=== PATIENT | male | born 1970 | race Caucasian/White ===

== ENCOUNTER 2017-01-30 08:28 | Day surgery (SDC) | payer OTHER ==
[~2017-01-30] VITALS: Ht 165.1 cm; Wt 84.4 kg
[~2017-01-30 08:28] MED LIST: ALBUTEROL SULF8.5 GM INH; ALEVE220 MG PO; ASPIRIN325 MG PO; DHEA25 MG PO; GINSENG PO; IBUPROFEN400 MG PO; MEN'S ONE DAIL1 EACH PO; OSTERA TABLET1 EACH PO; TYLENOL325 MG PO; ZYRTEC10 MG PO
[2017-01-30] MEDS ORDERED: VITAMIN D-32000 UNI1 PO (09:10)
[2017-01-30] MEDS ORDERED: MULTIVITAMINS1 EAC7 PO (09:10)
[2017-01-30] MEDS ORDERED: VITAMIN C500 M1 PO (09:10)
--- NOTE | 2017-01-30 11:24 | NUR ---
01/30/17 Sunny4 Keyanna Tang MD AT BEDSIDE
--- NOTE | 2017-02-02 07:49 | OR ---
[facility] [address] [facility] [address] [place], [place] [address] Signed DATE OF OPERATION: 01/30/2017 SURGEON: Ismael Ernst MD PREOPERATIVE DIAGNOSES: 1. Rectal bleeding with grade 4 hemorrhoids. 2. Family history of colon cancer and colitis. 3. Incisional hernia at umbilicus. POSTOPERATIVE DIAGNOSIS: Grade 4 internal and external hemorrhoidal changes. No evidence of polyps or cancer or colitis. PROCEDURE: Total colonoscopy to cecum. ANESTHESIA: Intravenous sedation, fentanyl 100 mcg, Versed 5 mg. INDICATION: This 46-year-old white man is a patient of Dr. Dayron Maciel and well known to me from the past. He has had rectal bleeding and was seen and found to have grade 4 hemorrhoidal changes. He does have family history of colon cancer and colitis in his parents. His last colonoscopy was 6 years ago. He additionally is noted to have an incisional hernia at the umbilicus following laparoscopic appendectomy performed by Dr. Michel Singh. He is admitted at this time to undergo colonoscopy to rule out troublesome findings accounting for the bleeding that would be separate from the hemorrhoidal problem. If this study is normal, consideration will be made for incisional hernia repair with implantation of mesh. Following that, hemorrhoidectomy would be considered as well. The patient understands the risks of colonoscopy including, but not limited to bleeding, infection, and perforation and wished to proceed. FINDINGS: The prep was quite good. Complete colonoscopy was undertaken to the cecum. There were no signs of polyps, cancer, or colitis. Retroflexed view confirmed internal and external hemorrhoidal changes. DESCRIPTION OF PROCEDURE: The patient was brought to the endoscopy suite and placed in lateral decubitus position, Electronically Signed By: ISMAEL ERNST MD 02/02/17 0749 PATIENT NAME: GINI PEOPLES OPERATIVE REPORT DATE OF : 68 PHYSICIAN: ISMAEL ERNST MD REPORT #: [id number] REPORT IS CONFIDENTIAL AND NOT TO BE RELEASED WITHOUT AUTHORIZATION [facility] [address] [place] [id number] Signed given intravenous sedation to the point of slurred speech and nystagmus. Digital rectal examination was normal. An Olympus video colonoscope was passed in the rectum and manipulated throughout the colon. Throughout the procedure, the patient had some oxygen desaturations completely consistent with underlying sleep apnea syndrome. He is well known to have that, though he rarely uses his CPAP device. The scope was ultimately passed to the cecum without problem showing no sign of abnormality. The scope was withdrawn from that point. Examination throughout upon withdrawal of scope showed no sign of abnormality until retroflexed view of the rectum confirmed internal component of grade 4 prolapsing hemorrhoidal disease. The scope was removed and the patient was taken to recovery room in good condition. CONCLUDING DIAGNOSIS: No evidence of worrisome findings proximal to the rectum to account for bleeding. PLAN: We will set up for incisional hernia repair related to be followed by hemorrhoidectomy. He will call the office to schedule these things. MD HUANG Deng/CRATER /[id number] cc: Dayron Maciel MD Electronically Signed By: ISMAEL ERNST MD 02/02/17 0749 PATIENT NAME: GINI PEOPLES OPERATIVE REPORT DATE OF : 68 PHYSICIAN: ISMAEL ERNST MD REPORT #: [id number] REPORT IS CONFIDENTIAL AND NOT TO BE RELEASED WITHOUT AUTHORIZATION
== END 2017-01-30 12:08 | disposition home or self-care (01) ==
LOC: OPS 08:28 → DS 11:00 → OPS 12:08
PROVIDERS: Surgery
PROC: 0DJD8ZZ Inspection of Lower Intestinal Tract, Via Natural or Artificial Opening Endoscopic (ICD-10-PCS; principal; 2017-01-30 11:00)
DX: K64.3 Fourth degree hemorrhoids (principal); K42.0 Umbilical hernia with obstruction, without gangrene; G47.30 Sleep apnea, unspecified; J45.909 Unspecified asthma, uncomplicated; Z80.0 Family history of malignant neoplasm of digestive organs; Z90.89 Acquired absence of other organs; Z90.49 Acquired absence of other specified parts of digestive tract; Z96.651 Presence of right artificial knee joint; Z98.890 Other specified postprocedural states; Z99.81 Dependence on supplemental oxygen
CPT/HCPCS: 99152; 99153; J2250; J3010; J7120

== ENCOUNTER 2017-02-01 06:50 | Day surgery (SDC) | payer OTHER ==
[~2017-02-01] VITALS: Ht 165.1 cm; Wt 84.4 kg
[~2017-02-01 06:50] MED LIST changes: +MULTIVITAMINS1 EAC7 PO; +VITAMIN C500 M1 PO; +VITAMIN D-32000 UNI1 PO
[2017-02-01] MEDS ORDERED: IBUPROFEN600 MG PO (10:31)
[2017-02-01] MEDS ORDERED: OXYCODON-ACETA1 EAC2 PO (10:32)
[2017-02-01] MEDS ORDERED: MAPAP325 MG PO (10:32)
--- NOTE | 2017-02-02 07:49 | OR ---
[facility] [address] [place], [place] [address] Signed DATE OF OPERATION: SURGEON: Ismael Ernst MD PREOPERATIVE DIAGNOSIS: Recurrent incisional hernia at the umbilicus. POSTOPERATIVE DIAGNOSIS: Recurrent incisional hernia at the umbilicus. Three deficits total. PROCEDURE: Repair of incisional hernia at umbilicus with implantation of Prolene mesh (underlay technique). ANESTHESIA: General LMA, Ismael Sepulveda CRNA Local 20 mL 0.25% Marcaine with epinephrine. INDICATION: This 46-year-old white man is a patient of Dr. Maciel and underwent laparoscopic cholecystectomy by id in 2005. He underwent laparoscopic appendectomy by Dr. Singh in 2011 for acute appendicitis, and was noted concurrently to have apparent incisional hernia at the umbilicus. Repair was undertaken at that time with Prolene suture, but not any mesh given the inflammatory and infected nature of the appendix. He has since developed a bulge to the right of the umbilicus, which is progressively increased in size. Additionally, he notes another small bulge to the left of the umbilicus. The patient has undergone colonoscopy, and he additionally has hemorrhoids and a family history of colon cancer and colitis. His colonoscopy recently performed showed no evidence of malignancy. Hemorrhoidal excision is anticipated in the future. He is here at this time to undergo repair of the incisional hernia at the umbilicus understanding the risks of bleeding, infection, recurrence and so on. FINDINGS: There were actually three defects at the umbilicus. Prolene suture repair was noted in the area as well. The defects were made to be in continuity and the properitoneal space free allowing for implantation of Prolene mesh in an underlay technique widely overlapping the defect by 4 cm at every area. The midline fascia was transversely re-approximated with Prolene suture with Prolene mesh pledgets as well. Optimal repair Electronically Signed By: ISMAEL ERNST MD 02/02/17 0749 PATIENT NAME: GINI PEOPLES OPERATIVE REPORT DATE OF : 68 PHYSICIAN: ISMAEL ERNST MD REPORT #: [id number] REPORT IS CONFIDENTIAL AND NOT TO BE RELEASED WITHOUT AUTHORIZATION [facility] [address] [place], [place] [address] Signed has been accomplished. DESCRIPTION OF PROCEDURE: The patient was brought to the operating room, given a general LMA-type anesthetic, preoperative antibiotic Ancef was given. Sequential compression device stockings were used and heparin subcutaneously administered. The abdomen was clipped and prepared with chlorhexidine solution and draped sterilely. A transverse incision was noted from prior operation. A midline incision was made transecting the transverse incision circumventing the umbilicus itself. Dissection was carried through the subcutaneous tissue and fat with a blunt and electrocautery dissection ultimately freeing three separate hernia sacs from the overlying skin and soft tissue. The fascial defects were between 2 and 3 cm each. They were bridged by fascia as well. Prolene suture, which had been implanted in the past for suture repair was explanted. Subcutaneous tissue over the fascia was freed to allow for suture placement. The properitoneal space was bluntly free reducing the herniated omentum. The hernia sac was made to be closed with 2-0 Vicryl. The fascial edge that had been freed in the properitoneal space circumferentially for at least 4 cm was accomplished with the end of a DeBakey forceps and blunt dissection. A segment of Prolene mesh was cut to an elliptical configuration and secured transversely beneath the fascial defect. Interrupted 0 Prolene sutures with Prolene mesh pledgets were used to secure the mesh. The fascial edges were reapproximated with interrupted 0 Prolene with Prolene mesh pledgets as well in a vertical mattress configuration, closing the fascial defect over the mesh entirely. 20 mL of 0.25% Marcaine with epinephrine was injected locally. Irrigation was undertaken. Claudia's layer was reapproximated with interrupted 2-0 Vicryl and the skin closed with running subcuticular 3-0 Vicryl. Steri-Strips were applied as was a Mepilex silver sponge dressing and an OpSite. The patient was ultimately extubated and transferred to recovery room in good condition having suffered no complications. Sponge, needle, and counts reported as correct x2. Ismael Ernst MD Electronically Signed By: ISMAEL ERNST MD 02/02/17 0749 PATIENT NAME: GINI PEOPLES OPERATIVE REPORT DATE OF : 68 PHYSICIAN: ISMAEL ERNST MD REPORT #: [id number] REPORT IS CONFIDENTIAL AND NOT TO BE RELEASED WITHOUT AUTHORIZATION [address] [address] Signed /CARTER /[id number] cc: DOCTOR ELEANOR Singh MD Electronically Signed By: ISMAEL ERNST MD 02/02/17 0749 PATIENT NAME: GINI PEOPLES OPERATIVE REPORT DATE OF : 68 PHYSICIAN: ISMAEL ERNST MD REPORT #: [id number] REPORT IS CONFIDENTIAL AND NOT TO BE RELEASED WITHOUT AUTHORIZATION
== END 2017-02-01 13:50 | disposition home or self-care (01) ==
LOC: DS 06:50
PROVIDERS: Surgery
PROC: 0WUF0JZ Supplement Abdominal Wall with Synthetic Substitute, Open Approach (ICD-10-PCS; principal; 2017-02-01 08:45)
DX: K43.2 Incisional hernia without obstruction or gangrene (principal); K64.3 Fourth degree hemorrhoids; E66.3 Overweight; G47.30 Sleep apnea, unspecified; J45.909 Unspecified asthma, uncomplicated; K62.5 Hemorrhage of anus and rectum; Z98.890 Other specified postprocedural states; Z90.89 Acquired absence of other organs; Z90.49 Acquired absence of other specified parts of digestive tract; Z99.89 Dependence on other enabling machines and devices; Z68.31 Body mass index [BMI] 31.0-31.9, adult; Z80.0 Family history of malignant neoplasm of digestive organs; Z83.79 Family history of other diseases of the digestive system
CPT/HCPCS: 00750; C1781; J0461; J0690; J1100; J1644; J1885; J2250; J2405; J2704; J2765; J3010; J7120

== ENCOUNTER 2017-03-06 05:30 | Day surgery (SDC) | payer OTHER ==
[~2017-03-06] VITALS: Ht 165.1 cm; Wt 84.4 kg
[~2017-03-06 05:30] MED LIST changes: +IBUPROFEN600 MG PO; +MAPAP325 MG PO; +OXYCODON-ACETA1 EAC2 PO
--- NOTE | 2017-03-06 08:41 | NUR ---
03/06/17 0841 Yasmine Diaz 0839-PATIENT ARRIVED TO PACU ON 6L MASK O2 SAT 100% NONAROUSABLE. SR. MESH UNDERWEAR IN PLACE.
--- NOTE | 2017-03-06 09:19 | NUR ---
PT DESCRIBES RECTAL PRESSURE AND STATES "I HAVE TO POOP". ICED WATER GIVEN. CALL LIGHT W/IN REACH.
[2017-03-06] MEDS ORDERED: DILAUDID4 MG PO (09:33)
[2017-03-06] MEDS ORDERED: CITRUCEL479 GM PO (09:34)
--- NOTE | 2017-03-06 09:52 | NUR ---
PT REPORTS "I CAN FEEL MY FEET AND I NEED TO POOP". PT STOOD @ BS W/2 RN ASSIST. PT'S EYES ROLL BACK IN HIS HEAD AND HE HAS A SYNCOPAL EPISODE. PT LIFTED BACK ONTO THE BED PRIOR TO THE SYNCOPE. PT RESPONDS TO RN IMMEDIATELY AFTER LAYING ON BED. VITALS TAKEN AND ARE PULSE 61, O2 SAT 99%, RR 14, BP 119/64. MOTHER QUITE ATTENTIVE @ BS. PT REPOSITIONS SELF ONTO LEFT SIDE AND REPORTS SOME RELIEF OF THE "PRESSURE" WITH REPOSITIONING. PT CONTINUES TO DENY PAIN. SIDE RAILS OF BED IN PLACE.
--- NOTE | 2017-03-06 10:25 | NUR ---
MOTHER COMES TO NURSE'S STATION REPORTING THAT PATIENT IS NOW REPORTING PAIN RATHER THAN PRESSURE. WHEN THIS RN ENTERS THE ROOM, PT IS WRITHING IN THE BED. COOL WASH CLOTH IS ON THE PATIENT'S HEAD AND HE REPORTS BEING "COLD". PT IS NORMOTHERMIC. JONA CAMPBELL ON WARM. PARENTS REMAIN @ BS.
--- NOTE | 2017-03-06 11:14 | OR ---
[facility] [address] [place], [place] [address] Signed DATE OF OPERATION: 03/06/2017 SURGEON: Ismael Ernst MD PREOPERATIVE DIAGNOSIS: Extensive internal and external symptomatic hemorrhoids. POSTOPERATIVE DIAGNOSIS: Extensive internal and external symptomatic hemorrhoids. PROCEDURE: Extensive hemorrhoidectomy x5. SURGEON: Ismael Ernst MD ANESTHESIA: Saddle block with sedation (Darren Gibson CRNA) and local 20 mL of 0.25% Marcaine with epinephrine. INDICATION: This 46-year-old white man is a patient of Dr. Maciel and has been bothered for quite sometime by internal and external hemorrhoidal changes. They have bled and caused pain and other problems. Perianal hygiene issues are problematic also. He has undergone colonoscopy showing no sign of neoplasm or other cause of bleeding other than the hemorrhoids. He is here at this time for hemorrhoidectomy. He understands the risks of bleeding, infection, variable degrees of incontinence (unlikely), recurrent hemorrhoidal disease and issues related to postoperative recovery including pain, understand this, he wished to proceed. FINDINGS: Extensive hemorrhoidal disease was noted, both internal and external hemorrhoidal complexes. This included the classic hemorrhoids of right posterior, right anterior and left lateral complexes as well as accessory bundles in the right anterior and left posterior sites. Complete excision was undertaken with preservation of anoderm. DESCRIPTION OF PROCEDURE: The patient was brought to the operating room after undergoing saddle block anesthetic. He is placed in prone monica-knife position, given intravenous sedation. Preoperative antibiotics had been administered and bowel prepped as well. The buttocks were taped Electronically Signed By: ISMAEL ERNST MD 03/06/17 1114 PATIENT NAME: GINI PEOPLES OPERATIVE REPORT DATE OF : 68 PHYSICIAN: ISMAEL ERNST MD REPORT #: [id number] REPORT IS CONFIDENTIAL AND NOT TO BE RELEASED WITHOUT AUTHORIZATION [facility] [address] [place], [place] [address] Signed apart and the perianal area prepared with chlorhexidine solution and draped sterilely. Digital examination showed no anorectal mass. Extensive internal and external hemorrhoidal disease was noted. An anal retractor was placed. A Craig clamp was applied to the right anterior hemorrhoidal complex and a 2-0 chromic suture and a UR needle used to secure the pedicle proximally. Using electrocautery, hemorrhoidal excision was undertaken, mindful to avoid dissection to the underlying sphincter muscle. Once the hemorrhoid was fully elevated, the pedicle was again secured with the chromic tie, amputated and the mucosa reapproximated leaving a space externally to allow for drainage. This was repeated on four additional hemorrhoidal complexes including the right posterior, right anterior accessory, left lateral and left posterior accessory bundles. Photographs were taken throughout the procedure. A 20 mL of 0.25% Marcaine was injected with epinephrine. It was injected for local postoperative analgesic effect 20 mL in total used. A Gel-Foam with bacitracin was applied as a plug into the anal canal as well. A peripad was applied. He was returned to supine position, ultimately allowed to emerge from sedation and taken to recovery room in good condition. Blood loss is less than 25 mL. Sponge, needle, and instrument counts reported as correct x3. Ismael Ernst MD JM/MODL /[id number] cc: Dayron Maciel MD Electronically Signed By: ISMAEL ERNST MD 03/06/17 1114 PATIENT NAME: GINI PEOPLES OPERATIVE REPORT DATE OF : 68 PHYSICIAN: ISMAEL ERNST MD REPORT #: [id number] REPORT IS CONFIDENTIAL AND NOT TO BE RELEASED WITHOUT AUTHORIZATION
--- NOTE | 2017-03-06 11:16 | NUR ---
PATIENT'S MOTHER PRESENTS TO THE NURSE'S STATION AND REPORTS PATIENT'S PAIN IS RETURNING. PRN GIVEN. JONA SHANNAN CONTINUES ON WARM AND CONTINUOUS PULSE OX REMAINS IN PLACE.
--- NOTE | 2017-03-06 12:31 | NUR ---
PARENTS REMAIN @ BS. CONTINUOUS PULSE OX IN PLACE. SALTINE CRACKERS GIVEN.
--- NOTE | 2017-03-06 13:34 | NUR ---
PT TRANSFERS TO STANDING POSITION AND DOES SO QUITE GUARDED. PT IS ABLE TO WALK APPROXIMATELY 15 FEET BEFORE GETTING PALE AND DIAPHORETIC. WC RETRIEVED AND PT TRANSFERRED TO SIDE SITTING POSITION. PT TRANSFERRED BACK TO BED. PT DENIES DESIRE TO USE URINAL @ THIS TIME. COOL WASHCLOTH GIVEN. PT REQ NO SCD PLACEMENT @ THIS TIME. PARENTS REMAIN @ BS. CALL LIGHT W/IN REACH.
--- NOTE | 2017-03-06 14:24 | NUR ---
DONITA 3164: CONTACT MADE W/ AND UPDATED ON PATIENT'S PROGRESS. NEW ORDER RECEIVED. PT RESTING QUIETLY WHEN THIS RN ENTERS THE ROOM AND PARENTS REPORT "HE HAS BEEN SLEEPING PRETTY QUIET". PT REPORTS PAIN 9/10 AND FALLS QUICKLY BACK TO SLEEP WHEN LEFT UNDISTURBED.
--- NOTE | 2017-03-06 15:40 | NUR ---
LE 1450: PT UP TO BS IN ATTEMPT TO VOID IN URINAL. PARENTS ASSISTING. PT UNABLE TO VOID. PT BACK IN BED AND BLADDER SCANNED FOR 550 ML AND AMBULATES TO BR W/MOTHER ASSIST IN BR TO ATTEMPT VOIDING AGAIN. DR ERNST UPDATED ON PATIENT'S PROGRESS AND NEW ORDERS ARE RECEIVED. RUBBER HEEL AND SOLE PRESS TENDER IS CONTACTED TO IN AND OUT CATH PATIENT PATIENT'S FATHER REPORTS HE WOULD FEEL MORE COMFORTABLE WITH A MALE NURSE. PATIENT REFUSES CATHETER FROM RUBBER HEEL AND SOLE PRESS TENDER AND REQUESTS 5 MINUTES TO ATTEMPT VOIDING INTO THE URINAL AGAIN.
--- NOTE | 2017-03-06 15:59 | NUR ---
PT ALLOWS INSPECTOR HAIRSPRING TRUING INTO HIS ROOM FOR IN AND OUT CATHETER. DR. ERNST MADE AWARE OF PT'S PROGRESS.
--- NOTE | 2017-03-06 16:59 | NUR ---
MORE ICED WATER GIVEN. HARD COPY PRESCRIPTION GIVEN TO PT'S MOTHER. PATIENT EATS CRACKERS AND TOLERATES THAT WELL.
--- NOTE | 2017-03-06 18:14 | NUR ---
LE 1750: PT TRANSFERRED TO MD AND VERBAL REPORT GIVEN TO MALIA ROSA. HER QUESTIONS ARE ANSWERED. PT STANDS AND TRANSFERS SELF TO BED FROM STRETCHER AND PARENTS REMAIN @ BS. PT AMBULATES TO AND GETS PALE AND DIAPHORETIC. PATIENT ASSISTED BACK TO BED. CALL LIGHT W/IN REACH.
--- NOTE | 2017-03-06 18:26 | NUR ---
PT TO FLOOR VIA STRETCHER WITH MALIA PEDERSON. PT ABLE TO AMBULATE TO BED AND RESTROOM. GOT A LITTLE LIGHT HEADED IN THE RESTROOM, ASSISTED BACK TO BED WITHOUT VOIDING. PARENTS IN ROOM.
--- NOTE | 2017-03-06 19:28 | NUR ---
PT RESTING IN BED WITH EYES CLOSED. FAMILY IN ROOM.
--- NOTE | 2017-03-06 21:00 | NUR ---
PT LAYING IN BED. FAMILY AT BEDSIDE. PT ALERT AND ORIENTED X4. PLEASENT DEMEANOR. PT JOKING WITH STAFF AND FAMILY. NO APPARENT DISTRESS. REPORTS PAIN AT 7/10 AT THE MOMENT, GAVE DILAUDID PO AND MOTRIN FOR PAIN. ATE YOGURT AND TOLERATED WELL, DENIES NAUSEA. PT'S MOTHER APPLIED CREAM TO MARY/RECTAL AREA (DILTIAZEM CREAM). GAVE FRESH ICE WATER. CALL LIGHT IN REACH. PT ABLE TO VOID IN URINAL STANDING AT BEDSIDE. NO DIZZINESS REPORTED, BUT TWO PERSON PERSON ASSIST FOR SAFETY.
--- NOTE | 2017-03-06 23:18 | NUR ---
PT USED CALL LIGHT TO NOTIFY NURSE OF 710 PAIN, REPORTS HE WAS ABLE TO FALL ASLEEP BUT THE PAIN STARTED AGAIN AFTER HE WAS UP OUT OF BED TO VOID. GAVE TYLENOL FOR PAIN AND WILL CONTINUE TO MONITOR PATIENTS PAIN CLOSELY. PT INSTRUCTED TO CALL NURSE IF HIS PAIN GETS WORSE. PT LAYING IN BED, APPEARS RELAXED, LAYING ON LEFT SIDE WITH PILLOWS BEHIND HIS BACKSIDE. GAVE FRESH ICE WATER. NO FURTHER NEEDS. CALL LIGHT IN REACH.
--- NOTE | 2017-03-06 23:40 | NUR ---
2 PERSON ASSISTED PATIENT TO THE BATHROOM AND BACK TO BED.
--- NOTE | 2017-03-07 00:50 | NUR ---
pt up to bathroom to void. voided 400mls. pt back in bed. reports his pain is doing well, but requested pain medication to "keep it that way." rates pain at 4/10, gave dilaudid for pain. gave fresh ice water. call light in reach. no further needs.
--- NOTE | 2017-03-07 02:40 | NUR ---
PT APPEARS TO BE SLEEPING, RR WNL AND UNLABORED.
--- NOTE | 2017-03-07 04:16 | NUR ---
PT APPEARS ASLEEP, RR WNL AND UNLABORED. LIGHTS AND TV OFF IN ROOM.
--- NOTE | 2017-03-07 05:27 | NUR ---
PT APPEARS TO BE SLEEPING. RR WNL AND UNLABORED. LAYING ON RIGHT SIDE, PILLOWS BEHIND HIS BACK. LIGHTS OFF IN ROOM. PARENTS WENT FOR A WALK, MADE FRESH COFFEE FOR THEM.
--- NOTE | 2017-03-07 06:53 | NUR ---
PT COMPLAINED OF 7/10 PAIN. GAVE DILAUDID PO FOR PAIN. AT BEDSIDE. NO FURTHER NEEDS. CALL LIGHT IN REACH.
--- NOTE | 2017-03-07 07:46 | NUR ---
REPORT RECIEVED FROM MALIA STOREY. PT AWAKE AND TALKING TO . PT STATES HE HAD A DECENT NIGHT AND IS READY TO GO HOME. CALLED DR ERNST TO ALERT TO PT STAYING NIGHT AND ASK FOR FURTHER ORDERS. HE ORDERED PT TO START FLOMAX NOW AND CONTINUE ON DISCHARGE. PT CAN GO HOME THIS MORNING PLANNED.
[2017-03-07] MEDS ORDERED: FLOMAX0.4 MG PO (07:53)
--- NOTE | 2017-03-07 09:54 | NUR ---
PT IN SHOWER. MOTHER IN ROOM OUTSIDE OF BATHROOM.
--- NOTE | 2017-03-07 10:33 | NUR ---
PT DC'D HOME WITH PARENTS. PT EDUCATION GIVEN. PT AND MOTHER VERBALIZED UNDERSTANDING. MOTHER RETIRED RN. PT VERBALIZED UNDERSTANDING OF SITZ BATHS AND MEDICATIONS. VS STABLE. IV REMOVED WNL. PAIN MEDICATION GIVEN PRIOR TO DISCHARGE.
--- NOTE | 2017-03-08 07:11 | NUR ---
VISITED WITH PT'S PARENTS IN HALLWAY OUTSIDE . HE WAS ADMITTED, AND RATHER THAN DRIVE HOME, PARENTS STAYED IN WITH PT. THEY SEEM VERY COMMITED TO THEIR SON. HAD GOOD VISIT WITH BOTH, THEY EXPECT TO TAKE PT HOME TODAY. MOM IS TO HAVE KNEE EPLACEMENT NEXT WK IN [place]. PRAYED WITH THEM, WILL FOLLOW NEEDED
== END 2017-03-07 10:25 | disposition home or self-care (01) ==
LOC: DS 05:30 → MS 17:50 → DS 03-07 10:25
PROVIDERS: Surgery
PROC: 06BY0ZC Excision of Hemorrhoidal Plexus, Open Approach (ICD-10-PCS; principal; 2017-03-06 06:45)
DX: K64.4 Residual hemorrhoidal skin tags (principal); K64.8 Other hemorrhoids; G47.30 Sleep apnea, unspecified; J45.909 Unspecified asthma, uncomplicated; K43.2 Incisional hernia without obstruction or gangrene; Z90.49 Acquired absence of other specified parts of digestive tract; Z96.651 Presence of right artificial knee joint; Z98.890 Other specified postprocedural states; Z80.0 Family history of malignant neoplasm of digestive organs; Z83.79 Family history of other diseases of the digestive system; Z85.841 Personal history of malignant neoplasm of brain; Z79.899 Other long term (current) drug therapy
CPT/HCPCS: 00902; J0694; J1170; J1885; J2060; J2250; J2405; J2704; J3010; J7120

== ENCOUNTER 2017-03-12 19:01 | Emergency (ER) | payer OTHER ==
[~2017-03-12] VITALS: Ht 165.1 cm; Wt 84.4 kg
[~2017-03-12 19:01] MED LIST changes: +CITRUCEL479 GM PO; +DILAUDID4 MG PO; +FLOMAX0.4 MG PO
--- NOTE | 2017-03-13 09:31 | ER ---
[facility] [address] [facility] [address] [address] [place] [address] Signed DATE OF SERVICE: 03/12/2017 PROBLEM: Subjective sense of urinary retention and no bowel movement since hemorrhoidectomy, postop day #6. HISTORY OF PRESENT ILLNESS: This 46-year-old white man is well known to me from the past. Last Sunday (today is Sunday), he underwent extensive hemorrhoidectomy. He had some hesitancy of urination in the Day Surgery Area somewhat delaying his discharge home. He was treated with Flomax x1. He was prescribed Flomax. Unfortunately, he did not take any of it nor did he fill the prescription as directed. He called my office earlier in the day complaining that he had not yet had a bowel movement. He has been taking Citrucel on a daily basis. He was also advised to take sitz baths, which he did not do either. He says he used shower, which kept him "clean." He is taking only Motrin for pain at this time. He was given Dilaudid and took it, but it was not well tolerated due to itching and therefore he discontinued it after one dose. He has been using only Motrin since his operation, but with good effect overall. He later in the day called my office and was advised by my nurse through my direction to take one bottle of magnesium citrate. He did so at about 4 p.m. He still had not urinated much of the day and therefore came to the emergency room where he was evaluated by Dr. Lambert and subsequently by me. A Simon catheter was placed, which delivered 546 mL of urine. He does feel somewhat better with the Simon catheter in place. Not mentioned previously was the recommendation to use Diltiazem ointment 2% applied to the perianal area at least b.i.d. He has been doing that and with some benefit. PHYSICAL EXAMINATION: GENERAL: An anxious white man, accompanied by his . He does not look systemically toxic. NECK: Trachea is midline. CHEST: Clear. HEART: Regular. ABDOMEN: Nondistended. Examination of the perianal area shows some perianal swelling. No sign of erythema or fluctuance. Digital examination was not undertaken. Electronically Signed By: ISMAEL ERNST MD 03/13/17 0931 PATIENT NAME: GINI PEOPLES EMERGENCY ROOM REPORT DATE OF : 68 PHYSICIAN: ISMAEL ERNST MD REPORT #: [id number] REPORT IS CONFIDENTIAL AND NOT TO BE RELEASED WITHOUT AUTHORIZATION [address] [address] Signed ASSESSMENT: The patient has had marginal compliance with the recommendations for postoperative management including not taking sitz baths, not using the Flomax that was prescribed. I have once again reiterated our plan to use Flomax 0.4 mg p.o. daily. He will fill the prescription tomorrow, which has already been written last week. Additionally, he will use a hot sitz bath at least t.i.d. and more if he desires and if it is helpful. The Simon catheter will remain in place until , at which time he will come to Day Surgery and it will be removed sometime during the day. I may be able to see him between operative cases at that time. In the meantime, I suspect that his bowel function will return with the aforementioned methods already employed. He should continue with Citrucel and maintain hydration. While in the ER, he will receive 30 mL of mineral oil, which may help to increase intraluminal fluid contents and more reliably induce bowel movement. I reviewed all these instructions with the patient as well as the emergency room physician, and his . MD HUANG Deng/JULESL /[id number] cc: Mario Lambert MD Electronically Signed By: ISMAEL ERNST MD 03/13/17 0931 PATIENT NAME: GINI PEOPLES EMERGENCY ROOM REPORT DATE OF : 68 PHYSICIAN: ISMAEL ERNST MD REPORT #: [id number] REPORT IS CONFIDENTIAL AND NOT TO BE RELEASED WITHOUT AUTHORIZATION
== END 2017-03-12 23:00 | disposition home or self-care (01) ==
LOC: ED 19:01
PROC: 4A0D7LZ Measurement of Urinary Volume, Via Natural or Artificial Opening (ICD-10-PCS; principal; 2017-03-12)
PROC: 0T9B70Z Drainage of Bladder with Drainage Device, Via Natural or Artificial Opening (ICD-10-PCS; 2017-03-12)
DX: R33.9 Retention of urine, unspecified (principal); J45.909 Unspecified asthma, uncomplicated; Z88.5 Allergy status to narcotic agent; Z79.899 Other long term (current) drug therapy
CPT/HCPCS: 51702; 51798; 81001; 99283